=== PATIENT | female | born 1980 | race Caucasian/White ===

== ENCOUNTER 2023-08-08 18:14 | Emergency (ER) | payer OTHER, SELFPAY ==
[2023-08-08 18:31] VITALS: BP 150/88; PULSE 103; RESP 16; TEMP 36.9; O2SAT 97; BMI 45.7
--- NOTE | 2023-08-08 18:42 | CT_ITS ---
WS: [id number] CT ABDOMEN AND PELVIS NONCONTRAST HISTORY: r flank pain TECHNIQUE: Imaging performed through the abdomen and pelvis. Coronal and sagittal reformats are submi tted. All CT scans at [facility] use at least one of these dose optimization techniques: auto mated exposure control; mA and/or kV adjustment per patient size (includes targeted exams where dose is matched to clinical indication); or iterative reconstruction. DLP: 1226.33 mGy.cm COMPARISON: None available. Lower thorax: Lung bases are clear. Visualized heart is normal. No hiatal hernia. Liver: Mild hepatomegaly and hepatic steatosis. No bile duct dilatation. Gallbladder: Normal gallbladder. No pericholecystic fluid or cholelithiasis. No gallbladder wall thic kening. Pancreas: Normal size and attenuation. Normal pancreatic duct. No pancreatitis or mass. Spleen: Normal. Adrenal glands: Normal. No mass. Right kidney: Moderate enlargement of the RIGHT kidney with marked perinephric stranding. Loss of the normal cortical medullary junction. Significant hydronephrosis. Central renal pelvis is dilated. The re is an abrupt change in caliber at the UP junction. No calcified stone is identified. The distal ur eter is normal caliber. The renal vein is being displaced superiorly. IVC is normal caliber. Left kidney: Normal size kidney with no mass or hydronephrosis. Aorta: Normal abdominal aorta, no aneurysm or atherosclerosis. No free fluid, intraperitoneal air or significant lymphadenopathy. GI tract: Normal noncontrast imaging of the stomach, small bowel and colon. No obstruction or wall th ickening. Normal appendix. Abdominal wall: Negative. No hernia. Pelvis: No free fluid or adenopathy. Osseous structures: Unremarkable. IMPRESSION: 1. Abnormal RIGHT kidney. Markedly enlarged RIGHT kidney with a dilated renal pelvis. There is a taylor y abrupt change in caliber at the UP junction. There is marked distention of the central renal pelvis . No calcification identified. Differential includes high-grade stricture, neoplasm or duplicated genaro al pelvis with obstruction of the upper pole moiety. The RIGHT renal vein is being displaced. If ther e is any concern for renal vein thrombosis consider follow-up ultrasound evaluation of the renal vein . 2. No renal or ureteral calcifications.
--- NOTE | 2023-08-08 18:43 | ED_ITS ---
HPI - Abdominal Pain 2 General: Chief Complaint: Abdominal Pain Stated Complaint: lower abd pain, N/V Time Seen by Provider: 08/08/23 18:37 Source: patient Mode of arrival: ambulatory Limitations: no limitations History of Present Illness: 43-year-old female states that she had s udden onset of left flank and abdominal pain that started 3 hours ago. States the pains sharp and rates an 8 out of 10 had some nausea and vomiting with the pain. She is pacing in the room currently to the pain she states she has no worsening improving factors states it does not feel worse with palpation. Associated Symptoms: Reports nausea and vomiting; Denies chills, diarrhea, dysuria and fever(s) Review of Systems 2 Const: Denies: fever(s), chills, body aches or change in appetite ENMT: Denies: throat pain or dental pain Card: Denies: chest pain Resp: Denies: dyspnea GI: Reports: abdominal pain, nausea and vomiting; Denies: diarrhea : Reports: flank pain; Denies: dysuria Musc: Denies: neck pain or back pain Skin/Breast: Denies: rash Neuro: Denies: headache(s) Physical Exam 2 Const: COMMON NORMALS: no acute distress, patient oriented x3 and healthy appearing HENMT: COMMON NORMALS: normocephalic and atraumatic HEAD & SCALP: n ormocephalic and atraumatic Neck/C-Spine: COMMON NORMALS: full ROM and supple Chest: COMMONS NORMALS: normal inspection of the chest Resp: COMMON NORMALS: normal respiratory effort, No retractions, No use of accessory muscles and clear to auscultation bilaterally AUSCULTATION: clear to auscultation bilaterally Cardio: COMMON NORMALS: regular rate RATE: regular rate GI: COMMON NORMALS: Normal to inspection, nondistended, normoactive bowel sounds present, Soft to palpation, non-tender and no masses PALPATION: Yes Soft to palpation Extremity: COMMON NORMALS: normal to inspection and full ROM Neuro: COMMON NORMALS: patient oriented x3, moves all extremities and no focal motor deficits Psych: COMMON NORMALS: mental status grossly normal, Normal thought process present and cooperative THOUGHT PROCESS: Normal thought process present Skin: COMMON NORMALS: no rashes or lesions noted and no wounds GENERAL SKIN EXAM: no rashes or lesions noted Course 2 Vital Signs: Vital signs: Vital Signs Temperature 98.4 F 02/26/24 18:31 Pulse Rate 103 H 08/08/23 18:31 Respiratory Rate 16 08/08/23 18:31 Blood Pressure 150/88 08/08/23 18:31 Pulse Oximetry 97 08/08/23 18:31 Oxygen Delivery Me thod Room Air 08/08/23 18:31 MDM - Abdominal Pain Medical Decision Making Patient presents here with sudden onset of flank pain CT did show hydronephrosis along with the abrupt change in her ureter is likely a ureter stricture. Ultrasound showed no signs of renal vein thrombosis her pain has been resolved here we will prescribe her pain meds for home we will get her follow-up with urology she is return if worsening she understands agrees to plan. Medical Records I reviewed the patient's medical records. Lab Data I reviewed the patient's lab results. 08/08/23 19:04 08/08/23 19:04 Labs/Radiology: Laboratory Results WBC 12.91 10^3/uL (3.29-11.43) H 08/08/23 19:04 RBC 4.80 10^6/uL (3.85-5.65) 08/08/23 19:04 Hgb 11.40 g/dL (11.27-16.99) 08/08/23 19:04 Hct 39.0 % (36-47) 08/08/23 19:04 MCV 81.3 fl (85-98) L 08/08/23 19:04 MCH 23.8 pg (27-33) L 08/08/23 19:04 MCHC 29.2 g/dL (30-55) L 08/08/23 19:04 RDW 14.6 % (12.1-15.1) 08/08/23 19:04 Plt Count 174 10^3/cmm (157-399) 08/08/23 19:04 MPV 13.1 fL (7.4-10.4) H 08/08/23 19:04 Neut % (Auto) 80.3 % 08/08/23 19:04 Lymph % (Auto) 11.5 % 08/08/23 19:04 [place] % (Auto) 5.5 % 08/08/23 19:04 Eos % (Auto) 0.8 % 08/08/23 19:04 Baso % (Auto) 0.6 % 08/08/23 19:04 Neut # (Auto) 10.36 10^3/uL (1.8-7.7) H 08/08/23 19:04 Lymph # (Auto) 1.5 10^3/uL (0.8-4.8) 08/08/23 19:04 [place] # (Auto) 0.7 10^3/uL (0.2-0.9) 08/08/23 19:04 Eos # (Auto) 0.1 10^3/uL (0.0-0.8) 08/08/23 19:04 Baso # (Auto) 0.1 10^3/uL (0.0-0.1) 08/08/23 19:04 Nucleated RBC % (auto) 0 % 08/08/23 19:04 Nucleated RBCs # 0.0 /100WBC 08/08/23 19:04 Sodium 133 mmol/L (136-145) L 08/08/23 19:04 Potassium 4.1 mmol/L (3.5-5.1) 08/08/23 19:04 Chloride 100 mmol/L (98-107) 08/08/23 19:04 Carbon Dioxide 21 mmol/L (22-29) L 08/08/23 19:04 Anion Gap 16.1 (5-19) 08/08/23 19:04 BUN 11 mg/dL (6-20) 08/08/23 19:04 Creatinine 0.7 mg/dL (0.5-0.9) 08/08/23 19:04 GFR Calculation 90.9 mL/min (90-130) 08/08/23 19:04 Glucose 307 mg/dL (65-115) H 08/08/23 19:04 Calculated Osmolality 287 mOsm/kg (285-295) 08/08/23 19:04 Calcium 8.6 mg/dL (8.5-10.5) 08/08/23 19:04 Total Bilirubin 0.2 mg/dL (0.15-1.2) 08/08/23 19:04 AST 16 U/L (0-32) 08/08/23 19:04 ALT 13 U/L (0-33) 08/08/23 19:04 Alkaline Phosphatase 117 U/L (35-105) H 08/08/23 19:04 Total Protein 8.1 g/dL (6.6-8.7) 08/08/23 19:04 Albumin 3.8 g/dL (3.5-5.2) 08/08/23 19:04 Globulin 4.3 g/dL (1.3-4.6) 08/08/23 19:04 Lipase 29 U/L (13-60) 08/08/23 19:04 HCG, Qual Negative (Negative) 08/08/23 19:04 Urine Color Yellow (Yellow) 08/08/23 20:11 Urine Appearance Clear (CLEAR) 08/08/23 20:11 Urine pH 5 (5-7) 08/08/23 20:11 Ur Specific [place] 1.030 (1.005-1.030) 08/08/23 20:11 Urine Protein Neg (Negative) 08/08/23 20:11 Urine Glucose (UA) 1+ (Normal) H 08/08/23 20:11 Urine Ketones Negative (Negative) 08/08/23 20:11 Urine Blood 2+ (Negative) H 08/08/23 20:11 Urine Nitrate Negative (Negative) 08/08/23 20:11 Urine Bilirubin Neg (Negative) 08/08/23 20:11 Urine Urobilinogen Norm mg/dL (Negative) 08/08/23 20:11 Ur Leukocyte Esterase Negative (Negative) 08/08/23 20:11 Urine RBC 0-4 /hpf (0-2) H 08/08/23 20:11 Urine WBC 0-4 /hpf (0-5) H 08/08/23 20:11 Ur Squamous Epith Cells 0-4 /hpf (0-5) H 08/08/23 20:11 Amorphous Sediment 1+ /hpf 08/08/23 20:11 Urine Bacteria 1+ /hpf (NONE) H 08/08/23 20:11 Hyaline Casts Rare /lpf 08/08/23 20:11 Fine Granular Casts Rare /lpf 08/08/23 20:11 Urine Mucus 2+ /hpf 08/08/23 20:11 All radiology interpretation(s) finalized by discharge Discharge Plan Discharge Patient Disposition: Home Clinical Impression: Abdominal pain, Ureter, stricture Condition: Stable Prescriptions: New hydrocodone-acetaminophen 5-325 mg tablet 1 tab PO Q6H PRN (Reason: pain) Qty: 14 0RF ondansetron 4 mg tablet,disintegrating 4 mg PO Q6H PRN (Reason: nausea and vomiting) Qty: 14 0RF Discharge Orders: Discharge ED (Routine); Ordered 08/08/23 Ordered By: Raymond Amato Referrals: Nkechi Hussein DO [Primary Care Provider] - Discharge Diet: Advance as tolerated Discharge Activity: Resume usual activity Patient Instructions: Renal Colic (ED), Abdominal Pain (ED), Hydronephrosis (ED), Opioid Safety Coding Level of Care Code ED [employer] for [employer]
[2023-08-08 19:10] LABS: Basophils # 0.1 10^3/uL (0.0-0.1); Basophils % 0.6 %; Eosinophils # 0.1 10^3/uL (0.0-0.8); Eosinophils % 0.8 %; Lymphocytes # 1.5 10^3/uL (0.8-4.8); Lymphocytes % 11.5 %; Mean Corpuscular HGB Conc 29.2 g/dL (30-55); Mean Corpuscular Hemoglobin 23.8 pg (27-33); Mean Corpuscular Volume 81.3 fl (85-98); Mean Platelet Volume 13.1 fL (7.4-10.4); Monocytes # 0.7 10^3/uL (0.2-0.9); Monocytes % 5.5 %; Neutrophils # 10.36 10^3/uL (1.8-7.7); Neutrophils % 80.3 %; Nucleated Red Blood Cells % 0 %; Platelet Count 174 10^3/cmm (157-399); Red Cell Distribution Width 14.6 % (12.1-15.1); White Blood Count 12.91 10^3/uL (3.29-11.43)
[2023-08-08] MEDS: sodium chloride 0.9% 1,000 ML 999 ML IV (19:16)
[2023-08-08] MEDS: ondansetron 2 mg/ML SDV 2 mL 4 MG IVP (19:17)
[2023-08-08] MEDS: HYDROmorphone 1 mg/mL INJ 1 mL IVP (19:19)
[2023-08-08 19:25] LABS: Alanine Aminotransferase 13 U/L (0-33); Albumin Level 3.8 g/dL (3.5-5.2); Alkaline Phosphatase 117 U/L (35-105); Aspartate Amino Transferase 16 U/L (0-32); Blood Urea Nitrogen 11 mg/dL (6-20); Calcium 8.6 mg/dL (8.5-10.5); Carbon Dioxide 21 mmol/L (22-29); Chloride 100 mmol/L (98-107); Creatinine Clr Calc Pharmacy 122.1073; Globulin 4.3 g/dL (1.3-4.6); Glomerular Filtration Rate 90.9 mL/min (90-130); Glucose 307 mg/dL (65-115); Lipase 29 U/L (13-60); Osmolality Calculated 287 mOsm/kg (285-295); Sodium 133 mmol/L (136-145); Total Bilirubin 0.2 mg/dL (0.15-1.2); Total Protein 8.1 g/dL (6.6-8.7)
[2023-08-08 19:26] LABS: HCG, Serum Qual Negative (Negative)
[2023-08-08 19:29] LABS: Anion Gap 16.1 (5-19); Potassium 4.1 mmol/L (3.5-5.1)
[2023-08-08 19:30] LABS: Slide Review Slide Review Perform
--- NOTE | 2023-08-08 19:33 | US_ITS ---
WS: [id number] RENAL ULTRASOUND HISTORY: r/o renal vein thrombus COMPARISON: None available. TECHNIQUE: 2-D and color Doppler imaging of the kidney submitted. Right kidney: 14.7 cm x 6.2 cm x 6.0 cm. Cortex: 2.1 cm Slightly enlarged kidney. At least moderate hydronephrosis. Fluid within the renal pelvis is of incre ased echogenicity on some of the images suggesting there may be an infection. There is an abrupt term ination at the UP junction. Left kidney: 13.4 cm x 5.4 cm x 5.1 cm. Cortex: 2.3 cm Normal echogenicity with no hydronephrosis or mass. Aorta: Normal. Urinary Bladder: Normal distention. RIGHT renal vein was normal. This was read in correlation with the CT in which the renal vein was dis placed and appeared of increased density. IMPRESSION: 1. Moderate RIGHT hydronephrosis with an abrupt termination at the UP junction. Stone versus high-gr lorene stricture. There does only appear to be one renal pelvis identified on this examination. 2. Low-level echoes within the dilated renal pelvis suggesting pyelonephritis. 3. The RIGHT renal vein has normal flow.
[2023-08-08 20:42] LABS: Add Urine Microscopic? YES; Bacteria Urine 1+ /hpf; Bilirubin Urine Neg (Negative); Blood Urine 2+ (Negative); Glucose Urine UA 1+ (Normal); Ketones Urine Negative (Negative); Leukocyte Esterase Urine Negative (Negative); Mucus Urine 2+ /hpf; Nitrate Urine Negative (Negative); Protein Urine Neg (Negative); RBC Urine 0-4 /hpf (0-2); Squamous Epithelial Cell Urine 0-4 /hpf (0-5); Urine Appearance Clear (CLEAR); Urine Color Yellow (Yellow); Urobilinogen Urine Norm (Negative); WBC Urine 0-4 /hpf (0-5); pH Urine 5 (5-7)
[2023-08-08 20:43] LABS: Add Urine Culture? No; Amorphous Sediment Urine 1+ /hpf; Fine Granular Casts Urine RARE /lpf; Hyaline Casts Urine RARE /lpf
[2023-08-08 22:13] VITALS: PULSE 98; RESP 16; O2SAT 98
--- NOTE | 2023-08-09 01:12 | PC.NURSE ---
Pt sent home with [place] per Dr Amato orders.
--- NOTE | 2023-08-11 09:07 | DCPLANNER ---
I faxed patients chart to [facility] in [place], [place] on 08/11/23 at 0913am. Fax number faxed to is [phone]. Phone number is [phone]. This clinic should contact patient for appt.
== END 2023-08-08 22:12 | disposition home or self-care (01) ==
PROVIDERS: Emergency Provider Emergency Medicine; PCP Family Medicine
DX: N13.5 Crossing vessel and stricture of ureter without hydronephrosis (principal)
CPT/HCPCS: 36415; 74176; 76770; 80053; 81001; 83690; 84703; 85025; 96361; 96374; 96375; 99285; J1170; J2405; J7030

== ENCOUNTER → 2023-09-08 08:31 | Outpatient (BNVA) | payer OTHER, SELFPAY | PROVIDERS: PCP Family Medicine; Visit Provider Family Medicine | DX: E11.9 Type 2 diabetes mellitus without complications; D50.9 Iron deficiency anemia, unspecified | CPT/HCPCS: 80053; 80061; 82043; 82728; 83036; 83550; 85025 ==

== ENCOUNTER → 2023-10-14 10:29 | Outpatient (BNVA) | payer OTHER, SELFPAY | PROVIDERS: PCP Family Medicine; Visit Provider Family Medicine | DX: E11.9 Type 2 diabetes mellitus without complications (principal) | CPT/HCPCS: 80053 ==

== ENCOUNTER → 2023-12-01 10:06 | Outpatient (BNVA) | payer OTHER, SELFPAY | PROVIDERS: PCP Family Medicine; Visit Provider Family Medicine | DX: E11.9 Type 2 diabetes mellitus without complications (principal); Z13.6 Encounter for screening for cardiovascular disorders; D50.9 Iron deficiency anemia, unspecified; D50.8 Other iron deficiency anemias | CPT/HCPCS: 80053; 82728; 83036; 83550; 85025 ==

== ENCOUNTER → 2024-03-05 14:25 | Outpatient (BNVA) | payer OTHER, SELFPAY | PROVIDERS: PCP Family Medicine | DX: Z76.89 Persons encountering health services in other specified circumstances (principal); E11.9 Type 2 diabetes mellitus without complications | CPT/HCPCS: 80053; 83036; 84439; 84443 ==

== ENCOUNTER 2024-08-10 08:49 | Outpatient (CLI) | payer OTHER, SELFPAY ==
[2024-08-10 09:41] LABS: Estmated Average Glucose 140; Hemoglobin A1C 6.5 % (4.0-6.0)
[2024-08-10 09:51] LABS: Alanine Aminotransferase 14 U/L (0-33); Albumin Level 3.9 g/dL (3.5-5.2); Alkaline Phosphatase 96 U/L (35-105); Anion Gap 13.9 (5-19); Aspartate Amino Transferase 11 U/L (0-32); Blood Urea Nitrogen 9 mg/dL (6-20); Calcium 8.6 mg/dL (8.5-10.5); Carbon Dioxide 26 mmol/L (22-29); Chloride 102 mmol/L (98-107); Chol HDL Ratio 4.15 mg/dL (0.0-4.40); Cholesterol 162 mg/dL (0-200); Globulin 3.6 g/dL (1.3-4.6); Glomerular Filtration Rate 133.4 mL/min (90-130); Glucose 108 mg/dL (65-115); HDL Cholesterol 39 mg/dL (60-100); LDL Cholesterol Calculated 103 mg/dL (50-129); LDL HDL Ratio 2.64 RATIO (0.00-3.22); Osmolality Calculated 285 mOsm/kg (285-295); Potassium 3.9 mmol/L (3.5-5.1); Sodium 138 mmol/L (136-145); Total Bilirubin 0.5 mg/dL (0.15-1.2); Total Protein 7.5 g/dL (6.6-8.7); Triglycerides 102 mg/dL (0-150)
[2024-08-10 09:56] LABS: Creatinine Urine, Random 150 mg/dL (28-217); Microalbum Creatinine Ratio Ur 7 mg/dL (0-20); Microalbumin Random Urine 1 ug/dL (0-20)
== END 2024-08-10 08:50 | disposition home or self-care (01) ==
LOC: LAB 08:51
PROVIDERS: PCP Family Medicine; Visit Provider Internal Medicine
DX: E11.9 Type 2 diabetes mellitus without complications (principal)
CPT/HCPCS: 36415; 80053; 80061; 82044; 83036

== ENCOUNTER → 2024-08-29 10:46 | Outpatient (BNVA) | payer OTHER, SELFPAY | PROVIDERS: PCP Family Medicine; Visit Provider Family Medicine | DX: Z00.00 Encounter for general adult medical examination without abnormal findings (principal); D64.9 Anemia, unspecified; D50.8 Other iron deficiency anemias | CPT/HCPCS: 82728; 83540; 85025 ==

== ENCOUNTER 2024-09-10 14:42 | Outpatient (CLI) | payer OTHER, SELFPAY ==
--- NOTE | 2024-09-10 15:00 | MM_ITS ---
WS: [id number] BILATERAL 3D TOMOSYNTHESIS DIGITAL SCREENING MAMMOGRAPHY WITH CAD CLINICAL INFORMATION: BREAST CANCER SCREENING HISTORY: Screening mammogram. No current complaints. COMPARISON: 2020 TECHNIQUE: Bilateral CC and MLO views. FINDINGS: Scattered fibroglandular densities bilaterally. No suspicious focal mass, asymmetry, calcifications, or architectural distortion. No evidence of malignancy. A few incidental intramammary lymph nodes. MM/MM scr tomosynthesis [id number] IMPRESSION: DENSITY: There are scattered areas of fibroglandular density. BI-RADS: 2 - Benign. FOLLOW UP: 1 Year Follow-up Recommend return to annual screening mammography.
== END 2024-09-10 14:43 | disposition home or self-care (01) ==
LOC: RAD 14:43
PROVIDERS: PCP Family Medicine; Visit Provider Family Medicine
DX: Z12.31 Encounter for screening mammogram for malignant neoplasm of breast (principal); R92.323 Mammographic fibroglandular density, bilateral breasts; R59.0 Localized enlarged lymph nodes
CPT/HCPCS: 77063; 77067

== ENCOUNTER → 2024-12-11 13:24 | Outpatient (BNVA) | payer OTHER, SELFPAY | PROVIDERS: PCP Family Medicine; Visit Provider Internal Medicine | DX: E11.9 Type 2 diabetes mellitus without complications (principal) | CPT/HCPCS: 36415; 80053; 80061; 82044; 83036 ==

== ENCOUNTER 2025-03-15 09:36 | Outpatient (CLI) | payer OTHER, SELFPAY ==
[2025-03-15 11:26] LABS: Estmated Average Glucose 120; Hemoglobin A1C 5.8 % (4.0-6.0)
[2025-03-15 11:34] LABS: Alanine Aminotransferase 10 U/L (0-33); Albumin Level 4.2 g/dL (3.5-5.2); Alkaline Phosphatase 81 U/L (35-105); Anion Gap 15.9 (5-19); Aspartate Amino Transferase 16 U/L (0-32); Blood Urea Nitrogen 14 mg/dL (6-20); Calcium 9.0 mg/dL (8.5-10.5); Carbon Dioxide 23 mmol/L (22-29); Chloride 102 mmol/L (98-107); Cholesterol 169 mg/dL (0-200); Globulin 4.5 g/dL (1.3-4.6); Glucose 93 mg/dL (65-115); HDL Cholesterol 36 mg/dL (60-100); Osmolality Calculated 284 mOsm/kg (285-295); Potassium 3.9 mmol/L (3.5-5.1); Sodium 137 mmol/L (136-145); Total Protein 8.7 g/dL (6.6-8.7); Triglycerides 97 mg/dL (0-150)
[2025-03-15 11:42] LABS: Creatinine Urine, Random 47 mg/dL (28-217); Microalbum Creatinine Ratio Ur 21 mg/dL (0-20)
== END 2025-03-15 09:37 | disposition home or self-care (01) ==
LOC: LAB 09:40
PROVIDERS: PCP Family Medicine; Visit Provider Internal Medicine
DX: E11.9 Type 2 diabetes mellitus without complications (principal)
CPT/HCPCS: 36415; 80053; 80061; 82044; 83036